=== PATIENT | female | born 1965 | race Caucasian/White ===

== ENCOUNTER 2016-11-01 20:20 | Emergency (ER) | payer OTHER ==
[~2016-11-01] VITALS: Wt 76.0 kg
--- NOTE | 2016-11-02 01:57 | ERA ---
ER Documentation Chief Complaint Date/Time DATE: 11/02/16 TIME: 01:57 Chief Complaint CP HPI The patient is a 51-year-old female, presenting to the ER because she had left- sided chest discomfort about 2 AM yesterday, 10 AM today, and 3 PM today. They only lasted a second. She denies any chest pain now. She is under a lot of stress. She denies fever, chills, neck pain, chest pain with exertion or vomiting or diaphoresis. She denies dyspnea, abdominal pain, vomiting, dysuria , diarrhea, constipation. She does not smoke or drink Past medical/surgical history: None ROS All systems reviewed and are negative except as per history of present illness. Medications Home Meds Active Scripts Sulfamethoxazole-Trimethoprim* (Bactrim* DS) 800-160 Mg Tab, 1 TAB PO BID, #20 TAB Prov:DAMIÁN KC MD 11/02/16 Allergies Allergies: Coded Allergies: No Known Allergy (Unverified , 11/01/16) Physical Exam Vitals Vital Signs Date Time Temp Pulse Resp B/P Pulse Ox O2 Delivery O2 Flow Rate FiO2 11/01/16 21:50 98.6 105 20 153/86 95 Physical Exam Const: No acute distress. Head: Atraumatic. Eyes: Normal Conjunctiva. ENT: Normal External Ears, Nose and Mouth. Neck: Full range of motion. No meningismus. Resp: Clear to auscultation bilaterally. Cardio: Regular rate and rhythm, no murmurs. Abd: Soft, non distended, normal bowel sounds, non tender. Skin: No petechiae or rashes. Back: No midline or flank tenderness. Ext: No cyanosis, or edema. Neur: Awake and alert. No focal deficit Psych: Normal Mood and Affect. Result Diagram: 11/02/16 0204 11/02/16 0204 Results 24 hrs Laboratory Tests Test 11/02/16 02:04 11/02/16 02:24 11/02/16 02:32 White Blood Count 8.710^3/ul Red Blood Count 5.6510^6/ul Hemoglobin 12.3g/dl Hematocrit 39.9% Mean Corpuscular Volume 70.6fl Mean Corpuscular Hemoglobin 21.8pg Mean Corpuscular Hemoglobin Concent 30.8g/dl Red Cell Distribution Width 14.8% Platelet Count 09648^3/UL Mean Platelet Volume 9.2fl Neutrophils % 53.9% Lymphocytes % 40.0% Monocytes % 4.7% Eosinophils % 0.7% Basophils % 0.6% Nucleated Red Blood Cells % 0.0/100WBC Neutrophils # 4.710^3/ul Lymphocytes # 3.510^3/ul Monocytes # 0.410^3/ul Eosinophils # 0.110^3/ul Basophils # 0.110^3/ul Nucleated Red Blood Cells # 0.010^3/ul Prothrombin Time 13.2Sec Prothrombin Time Ratio 1.0 INR International Normalized Ratio 1.00 Activated Partial Thromboplast Time 29.5Sec Sodium Level 141mmol/L Potassium Level 3.9mmol/L Chloride Level 100mmol/L Carbon Dioxide Level 27mmol/L Anion Gap 18 Blood Urea Nitrogen 14mg/dl Creatinine 0.67mg/dl Glucose Level 107mg/dl Calcium Level 9.9mg/dl Troponin I < 0.012ng/ml < 0.012ng/ml Creatine Kinase 42IU/L Creatine Kinase Index 1.0 Creatinine Kinase MB (Mass) 0.43ng/ml Bedside Urine pH (LAB) 5.5 Bedside Urine Protein (LAB) Negative Bedside Urine Glucose (UA) Negative Bedside Urine Ketones (LAB) Negative Bedside Urine Blood Trace-lysed Bedside Urine Nitrite (LAB) Negative Bedside Urine Leukocyte Esterase (L 1+ Procedures/[place] [address] Radiology Main Line: [phone] DIAGNOSTIC IMAGING REPORT Patient: VINCE GARLAND : 1965 Age: 51 Sex: F MR #: [id number] DOS: 11/02/16 0216 Ordering MD: DAMIÁN KC MD Location: E/R Room/Bed: PROCEDURE: XR Chest. CLINICAL INDICATION: Chest pain TECHNIQUE: AP Portable chest. COMPARISON: No pertinent prior examinations were submitted for comparison. FINDINGS: The cardiomediastinal silhouette is normal. The lungs are clear. The osseous structures are unremarkable. IMPRESSION: No acute findings. RPTAT: HIKT .Tristen Mcclendon MD, MD Date Time Electronically viewed and signed by .Tristen Mcclendon MD, MD on 11/02/2016 02:53 .T/ CC: DAMIÁN KC MD EKG: Read by emergency physician at 2131 hrs Rate/Rhythm: Normal Sinus Rhythm 73 beats/min QRS, ST, T-waves: No ST elevation, no T inversion Impression: Normal EKG EKG: Read by emergency physician at 12:58 hrs Rate/Rhythm: Normal Sinus Rhythm 69 beats/min QRS, ST, T-waves: No ST elevation, no T inversion Impression: Normal EKG MEDICAL MAKING DECISION: The patient is a 51-year-old female without any cardiac risk factors, presenting with transient acute chest discomfort unclear etiology, acute cystitis. She remains well in the emergency department. The differential diagnoses considered include but are not limited to acute coronary syndrome, acute myocardial infarction, pericarditis, pulmonary embolism, aortic dissection, pneumonia, pleural effusion, pneumothorax, GERD, chest wall pain. Departure Diagnosis: Primary Impression: Chest pain Additional Impression: UTI (urinary tract infection) Condition: Good Comments She was discharged with Bactrim DS I discussed the findings with the patient. I advised the patient to follow-up with the primary physician in about 1-2 days, sooner if needed and return if any concern. The patient's blood pressure was elevated (>120/80) but appears stable without evidence of hypertension emergency or urgency. The patient was counseled about the risks of hypertension and urged to pursue outpatient monitoring and therapy within a week with their primary care physician. DAMIÁN KC MD Nov 02, 2016 01:57
[2016-11-02 02:34] LABS: URINE BLOOD (Dip) POC Trace-lysed (NEGATIVE)
[2016-11-02 02:53] LABS: ADD SCAN DIFF NO
--- NOTE | 2016-11-02 02:53 | RADRPT ---
PROCEDURE: XR Chest. CLINICAL INDICATION: Chest pain TECHNIQUE: AP Portable chest. COMPARISON: No pertinent prior examinations were submitted for comparison. FINDINGS: The cardiomediastinal silhouette is normal. The lungs are clear. The osseous structures are unrema rkable. IMPRESSION: No acute findings. RPTAT: HIKT .Tristen Mcclendon MD, MD Date Time Electronically viewed and signed by .Tristen Mcclendon MD, MD on 11/02/2016 02:53 .T/
[2016-11-02 02:54] LABS: BASOPHIL # 0.1 10^3/ul (0.0-0.1); BASOPHILS % 0.6 % (0.0-2.0); EOSINOPHILS # 0.1 10^3/ul (0.0-0.5); EOSINOPHILS % 0.7 % (0.0-7.0); HEMATOCRIT 39.9 % (37.0-47.0); HEMOGLOBIN 12.3 g/dl (12.0-16.0); LYMPHOCYTES # 3.5 10^3/ul (0.8-2.9); MEAN CORPUSCULAR HEMOGLOBIN 21.8 pg (29.0-33.0); MEAN CORPUSCULAR HGB CONC 30.8 g/dl (32.0-37.0); MEAN CORPUSCULAR VOLUME 70.6 fl (82.0-101.0); MEAN PLATELET VOLUME 9.2 fl (7.4-10.4); MONOCYTE # 0.4 10^3/ul (0.3-0.9); MONOCYTES % 4.7 % (0.0-11.0); NEUTROPHIL # 4.7 10^3/ul (1.6-7.5); NEUTROPHILS % 53.9 % (39.0-77.0); PLATELET COUNT 340 10^3/UL (140-415); RED BLOOD COUNT 5.65 10^6/ul (4.20-5.40); RED CELL DISTRIBUTION WIDTH 14.8 % (11.5-14.5); WHITE BLOOD COUNT 8.7 10^3/ul (4.8-10.8)
[2016-11-02 03:08] LABS: CHLORIDE 100 mmol/L (97-110); POTASSIUM 3.9 mmol/L (3.5-5.1); SODIUM 141 mmol/L (135-144)
[2016-11-02 03:11] LABS: ANION GAP 18 (8-16); BLOOD UREA NITROGEN 14 mg/dl (7-20); CARBON DIOXIDE 27 mmol/L (21-31); CREATININE 0.67 mg/dl (0.44-1.00); GLUCOSE 107 mg/dl (70-220)
[2016-11-02 03:12] LABS: CALCIUM 9.9 mg/dl (8.4-10.2)
[2016-11-02 03:12] LABS: CREATINE KINASE 42 IU/L (23-200)
[2016-11-02 03:15] LABS: PROTIME 13.2 Sec (12.2-14.2)
[2016-11-02 03:16] LABS: PARTIAL THROMBOPLASTIN TIME 29.5 Sec (25.0-35.0)
[2016-11-02 03:21] LABS: CK-MB 0.43 ng/ml (0.0-2.4)
[2016-11-02 03:28] LABS: TROPONIN-I < 0.012 ng/ml (0.00-0.12)
[2016-11-02 03:28] LABS: TROPONIN-I < 0.012 ng/ml (0.00-0.12)
[2016-11-02] MEDS ORDERED: BACTDS PO (04:18)
[2016-11-02 04:56] VITALS: BP 134/77; PULSE 88; RESP 20; TEMP 97.4
== END 2016-11-02 04:56 | disposition home or self-care (01) ==
LOC: E/R 20:20
DX: R07.9 Chest pain, unspecified (principal); N39.0 Urinary tract infection, site not specified
CPT/HCPCS: 36415; 71010; 80048; 81003; 82550; 82553; 84484; 85025; 85610; 85730; 93005